=== PATIENT | male | born 1970 | race Two or more races ===

== ENCOUNTER 2022-01-06 11:57 | Emergency (ER) | payer OTHER ==
[~2022-01-06] VITALS: Ht 167.6 cm; Wt 68.2 kg
[2022-01-06 12:14] VITALS: BP 155/90
[2022-01-06] MEDS ORDERED: BEBTELOVIMAB (EUA) 175 MG/2 ML VIAL IVP ONE (12:15)
[2022-01-06] MEDS ORDERED: NIRM1TAB5 PO (12:27)
[2022-01-06] MEDS ORDERED: ROSU20TA73 PO (12:27)
== END 2022-01-06 13:23 | disposition home or self-care (01) ==
LOC: EMS 11:57
DX: U07.1 COVID-19 (principal)
CPT/HCPCS: 99283; M0222; Q0222